=== PATIENT | male | born 2000 | race Caucasian/White ===

== ENCOUNTER 2021-07-12 13:48 | Observation (INO) | payer BC ==
[2021-07-12] MEDS ORDERED: SODIUM CHLORIDE 0.9% 500 ML 500 ML IV STA (14:35)
[2021-07-12 14:54] LABS: ALT 13 U/L (4-49); AST 18 U/L (17-59); African American GFR (CKD) >90 (>60 ml/min/1.73 sqM); Albumin 4.8 g/dL (3.5-5.0); Alkaline Phosphatase 53 U/L (38-126); Anion Gap 10 mmol/L; Blood Urea Nitrogen 11 mg/dL (9-20); Carbon Dioxide 27 mmol/L (22-30); Chloride 103 mmol/L (98-107); Glucose 102 mg/dL (74-99); Non-African American GFR(CKD) >90 (>60 ml/min/1.73 sqM); Potassium 4.3 mmol/L (3.5-5.1); Sodium 140 mmol/L (137-145); Total Bilirubin 0.4 mg/dL (0.2-1.3); Total Protein 7.8 g/dL (6.3-8.2)
--- NOTE | 2021-07-12 14:55 | ED ---
General Adult HPI - General Chief complaint: Neuro Symptoms/Deficit Stated complaint: Headache Time Seen by Provider: 07/12/21 14:05 Source: patient, family, RN notes reviewed, old records reviewed Mode of arrival: ambulatory Limitations: no limitations - History of Present Illness Initial comments: This is a 21-year-old male who presents emergency Department complaining of loss of vision in the lateral aspect of his right eye slurred speech and right arm weakness started at 1245 lasted about a half an hour to 45 minutes and then it subsided. Patient complains of a left frontal headache otherwise he is symptom- free. Patient denies any recent fever chills or cough. Patient denies any trauma. Patient's any chest pain palpitations. Patient denies any difficulty breathing shortest breath per patient denies abdominal pain patient denies nausea vomiting diarrhea. - Related Data Home Medications Medication Instructions Recorded Confirmed No Known Home Medications 07/12/21 07/12/21 Allergies Allergy/AdvReac Type Severity Reaction Status Date / Time No Known Allergies Allergy Verified 07/12/21 16:43 Review of Systems ROS Statement: Those systems with pertinent positive or pertinent negative responses have been documented in the HPI. ROS Other: All systems not noted in ROS Statement are negative. Past Medical History Past Medical History: No Reported History History of Any Multi-Drug Resistant Organisms: None Reported Past Surgical History: No Surgical Hx Reported Past Psychological History: No Psychological Hx Reported Smoking Status: Never smoker Past Alcohol Use History: None Reported Past Drug Use History: None Reported General Exam - General Exam Comments Initial Comments: GENERAL: Patient is well-developed and well-nourished. Patient is nontoxic and well- hydrated and is in no acute distress. ENT: Neck is soft and supple. No significant lymphadenopathy is noted. Oropharynx is clear. Moist mucous membranes. Neck has full range of motion without eliciting any pain. EYES: The sclera were anicteric and conjunctiva were pink and moist. Extraocular movements were intact and pupils were equal round and reactive to light. Eyelids were unremarkable. PULMONARY: Unlabored respirations. Good breath sounds bilaterally. No audible rales rhonchi or wheezing was noted. CARDIOVASCULAR: There is a regular rate and rhythm without any murmurs gallops or rubs. ABDOMEN: Soft and nontender with normal bowel sounds. No palpable organomegaly was noted. There is no palpable pulsatile mass. SKIN: Skin is clear with no lesions or rashes and otherwise unremarkable. NEUROLOGIC: Patient is alert and oriented x3. Cranial nerves II through XII are grossly intact. Motor and sensory are also intact. Normal speech, volume and content. Symmetrical smile. NIH is 0 MUSCULOSKELETAL: Normal extremities with adequate strength and full range of motion. No lower extremity swelling or edema. No calf tenderness. LYMPHATICS: No significant lymphadenopathy is noted PSYCHIATRIC: Normal psychiatric evaluation. Limitations: no limitations Course Vital Signs 07/12/21 07/12/21 07/12/21 14:07 15:15 16:00 Temperature 98.4 F Pulse Rate 110 H 77 78 Respiratory 18 18 18 Rate Blood Pressure 133/78 137/80 133/68 O2 Sat by Pulse 98 99 98 Oximetry Medical Decision Making - Medical Decision Making EKG shows sinus tachycardia at 107 bpm IA interval is 112 QRS is 86 QT interval 322 QTC is 429. Patient's EKG shows no ST segment elevation or depression. CT of the brain shows no acute abnormality. CTA shows no acute abnormality. I spoke with Dr. He Agreed That the Patient Needed to Be Admitted and He Will Be on Consult. I Spoke with Dr. Le She Agreed to Admit the Patient I Admitted the Patient She Wanted Neurologically consult as well as cardiology consult. - Lab Data Result diagrams: 07/12/21 14:40 07/12/21 14:40 Lab Results 07/12/21 07/12/21 07/12/21 Range/Units 14:40 14:40 14:40 WBC 6.1 (4.0-11.0) k/uL RBC 5.01 (4.30-5.90) m/uL Hgb 15.8 (13.0-17.5) gm/dL Hct 44.4 (39.0-53.0) % MCV 88.7 (80.0-100.0) fL MCH 31.5 (25.0-35.0) pg MCHC 35.4 (31.0-37.0) g/dL RDW 13.3 (11.5-15.5) % Plt Count 195 (150-450) k/uL MPV 7.6 Neutrophils % 64 % Lymphocytes % 27 % Monocytes % 6 % Eosinophils % 1 % Basophils % 0 % Neutrophils # 3.9 (1.3-7.7) k/uL Lymphocytes # 1.6 (1.0-4.8) k/uL Monocytes # 0.4 (0-1.0) k/uL Eosinophils # 0.0 (0-0.7) k/uL Basophils # 0.0 (0-0.2) k/uL PT 11.2 (9.0-12.0) sec INR 1.1 (<1.2) APTT 25.3 (22.0-30.0) sec Sodium 140 (137-145) mmol/L Potassium 4.3 (3.5-5.1) mmol/L Chloride 103 (98-107) mmol/L Carbon Dioxide 27 (22-30) mmol/L Anion Gap 10 mmol/L BUN 11 (9-20) mg/dL Creatinine 0.89 (0.66-1.25) mg/dL Est GFR (CKD-EPI)AfAm >90 (>60 ml/min/1.73 sqM) Est GFR (CKD-EPI)NonAf >90 (>60 ml/min/1.73 sqM) Glucose 102 H (74-99) mg/dL Calcium 10.0 (8.4-10.2) mg/dL Total Bilirubin 0.4 (0.2-1.3) mg/dL AST 18 (17-59) U/L ALT 13 (4-49) U/L Alkaline Phosphatase 53 (38-126) U/L Troponin I (0.000-0.034) ng/mL Total Protein 7.8 (6.3-8.2) g/dL Albumin 4.8 (3.5-5.0) g/dL 07/12/21 Range/Units 14:40 WBC (4.0-11.0) k/uL RBC (4.30-5.90) m/uL Hgb (13.0-17.5) gm/dL Hct (39.0-53.0) % MCV (80.0-100.0) fL MCH (25.0-35.0) pg MCHC (31.0-37.0) g/dL RDW (11.5-15.5) % Plt Count (150-450) k/uL MPV Neutrophils % % Lymphocytes % % Monocytes % % Eosinophils % % Basophils % % Neutrophils # (1.3-7.7) k/uL Lymphocytes # (1.0-4.8) k/uL Monocytes # (0-1.0) k/uL Eosinophils # (0-0.7) k/uL Basophils # (0-0.2) k/uL PT (9.0-12.0) sec INR (<1.2) APTT (22.0-30.0) sec Sodium (137-145) mmol/L Potassium (3.5-5.1) mmol/L Chloride (98-107) mmol/L Carbon Dioxide (22-30) mmol/L Anion Gap mmol/L BUN (9-20) mg/dL Creatinine (0.66-1.25) mg/dL Est GFR (CKD-EPI)AfAm (>60 ml/min/1.73 sqM) Est GFR (CKD-EPI)NonAf (>60 ml/min/1.73 sqM) Glucose (74-99) mg/dL Calcium (8.4-10.2) mg/dL Total Bilirubin (0.2-1.3) mg/dL AST (17-59) U/L ALT (4-49) U/L Alkaline Phosphatase (38-126) U/L Troponin I <0.012 (0.000-0.034) ng/mL Total Protein (6.3-8.2) g/dL Albumin (3.5-5.0) g/dL Disposition Clinical Impression: TIA (transient ischemic attack), Complicated migraine Disposition: ADMITTED IP TO THIS HOSP Referrals: Tracy Le MD [Primary Care Provider] - 1-2 days Time of Disposition: 17:01
--- NOTE | 2021-07-12 14:56 | CT ---
EXAMINATION TYPE: CT brain wo con for TPA DATE OF EXAM: 07/12/2021 COMPARISON: None HISTORY: headache CT DLP: [address] of the brain was performed. The ventricles, basal cisterns and sulci overlying the cerebral convexities demonstrate a normal appe arance. There is no evidence for intracranial hemorrhage or sulcal effacement. No mass effects are seen. Osseous calvarium is intact. If symptoms persist consider MRI as clinically warranted. IMPRESSION: 1. No acute intracranial process is seen at this time.
[2021-07-12 14:58] LABS: INR 1.1 (<1.2); Partial Thromboplastin Time 25.3 sec (22.0-30.0); Prothrombin Time 11.2 sec (9.0-12.0)
--- NOTE | 2021-07-12 15:24 | CT ---
EXAMINATION TYPE: CT angio head neck DATE OF EXAM: 07/12/2021 COMPARISON: None HISTORY: headache CT DLP: 444.3 mGycm CONTRAST: Performed with IV Contrast, patient injected with 65 mL of Isovue 370. Combination Contrast CTA cervical carotids and [place] CTA cervical carotids with 3-D recons truction Contrast CTA of the cervical carotids was performed 3-D reconstruction imaging obtained at a separate workstation. Right carotid system: Mild plaque is seen of the right common carotid artery. There is mild plaque a lso noted at the carotid bulb and proximal ICA. No significant diameter reduction. ECA is patent. Right vertebral artery appears unremarkable. Left carotid system: Mild plaque is seen of the left common carotid artery. There is mild plaque als o noted at the carotid bulb and proximal ICA. No significant diameter reduction. ECA is patent. Lef t vertebral artery appears unremarkable. IMPRESSION: 1. No significant diameter reduction to account for the patient's symptoms. CTA [place] with 3-D reconstruction Contrast CTA of the [place] was performed 3-D reconstruction imaging obtained at a separate workstation. Vertebrobasilar system as well as intracranial portions of the internal carotid arteries and their ma carroll tributaries are patent. I do not see evidence for sizable aneurysm or vascular malformation. Pl ease note MRI provides greater sensitivity and specificity. Visualized brain appears grossly unremar kable. IMPRESSION: 1. No significant abnormality. NASCET criteria was used in interpretation of this exam?
[2021-07-12 15:28] LABS: Basophils % (A) 0 %; Eosinophils % (A) 1 %; HCT 44.4 % (39.0-53.0); HGB 15.8 gm/dL (13.0-17.5); Lymphocytes # (A) 1.6 k/uL (1.0-4.8); Lymphocytes % (A) 27 %; MCH 31.5 pg (25.0-35.0); MCHC 35.4 g/dL (31.0-37.0); MCV 88.7 fL (80.0-100.0); Mean Platelet Volume 7.6; Monocytes # (A) 0.4 k/uL (0-1.0); Monocytes % (A) 6 %; Neutrophils # (A) 3.9 k/uL (1.3-7.7); Neutrophils % (A) 64 %; Platelet Count 195 k/uL (150-450); RBC 5.01 m/uL (4.30-5.90); RDW 13.3 % (11.5-15.5); WBC 6.1 k/uL (4.0-11.0)
--- NOTE | 2021-07-12 15:30 | XR ---
EXAMINATION TYPE: XR chest 2V DATE OF EXAM: 07/12/2021 COMPARISON: NONE HISTORY: Chest pain TECHNIQUE: Frontal and lateral views of the chest are obtained. FINDINGS: There is no focal air space opacity. No evidence for pneumothorax. No pleural effusion. The cardiac silhouette size is within normal limits. The osseous structures are grossly intact. IMPRESSION: 1. No acute cardiopulmonary process.
[2021-07-12] MEDS ORDERED: ASPIRIN 325 MG TAB PO STA (17:17)
[2021-07-13 03:49] LABS: Amphetamine Screen,Urine Not Detected (NotDetected); Barbiturate Screen,Urine Not Detected (NotDetected); Benzodiazepines Screen,Urine Not Detected (NotDetected); Cocaine Screen,Urine Not Detected (NotDetected); Methadone Screen, Urine Not Detected (NotDetected); Opiate Screen,Urine Not Detected (NotDetected); Oxycodone Screen, Urine Not Detected (NotDetected); Phencyclidine Screen,Urine Not Detected (NotDetected); Tricyclic Antidepressant,Urine Not Detected (NotDetected); Urn Cannabinoid Scrn Not Detected (NotDetected)
--- NOTE | 2021-07-13 07:52 | MR ---
EXAMINATION TYPE: MR brain wo con DATE OF EXAM: 07/13/2021 7:47 AM COMPARISON: NONE HISTORY: TIA vs complex migraine Multiplanar and multispin-echo imaging of the brain was performed . The ventricles, basal cisterns and sulci overlying the cerebral convexities are within normal limits. There is no evidence for midline shift or mass effect. Acute intracranial hemorrhage or extra-axial collection is not evident. The brain parenchyma reveals no abnormal increased signal. No acute edema is identified. The paranasal sinuses and mastoid air cells are well-aerated. IMPRESSION: Unremarkable MRI of the brain.
[2021-07-13] MEDS ORDERED: ASPIRIN 325 MG TAB PO SCH (09:00)
--- NOTE | 2021-07-13 10:10 | P.CNNES ---
History of Present Illness Consult date: 07/13/21 Requesting physician: Tracy Le Reason for Consult: TIA History of Present Illness: Patient is a 21-year-old male otherwise very healthy, came to the hospital yesterday at 1:48 PM for transient neurological symptoms and headache. Patient states that yesterday at 12:45 PM he noticed that he was having difficulty see ing peripherally on the right side. Shortly after he noticed that he was having trouble with forming sentences and words. He also noticed numbness of the right arm, shoulder and neck with some paresthesias like ants are crawling. He also noticed the tongue was numb. His mother notices that he was talking like "drunk person". Few minutes after onset of these neurological symptoms he developed a throbbing headache involving the left frontal region which he rated 9/10. He denies any nausea vomiting light or noise sensitivity. Denies any problem with balance. The neurological symptoms lasted for about 45 minutes maximum and everything went away. The headache lasted rest of the day and finally went away at 10:30 PM last night after he received some medication. At present he feels perfectly fine. Patient's vitals on arrival blood pressure 133/78, pulse rate 110, temperature 98.4. Blood test shows normal CBC, PT/PTT, CMP. Urine drug screen negative. Computed tomography scan of head showed no acute intracranial process. CTA of head and neck are normal. There is a mild plaque noted at the bilateral carotid bulb and proximal ICA. No significant diameter reduction. Chest x-ray is normal. EKG shows sinus tachycardia. Patient denies any history of migraines, although he gets headaches which sounds like migraines, but mainly occurs when the weather changes from hot to cold, or if the barometric pressure changes and start straining. When the headache occurs, it lasts a whole day. These headaches that occur from 0 times a month to 3 times a week. Patient states his mother suffers from migraines as well as maternal grandmother. He does not drink excessive coffee, does not use tobacco alcohol or drugs. He is planning to start college in winter. Review of Systems Completely unremarkable at this time. All 14 point of review systems reviewed and unremarkable. Past Medical History Past Medical History: No Reported History History of Any Multi-Drug Resistant Organisms: None Reported Past Surgical History: No Surgical Hx Reported Past Anesthesia/Blood Transfusion Reactions: No Reported Reaction Past Psychological History: No Psychological Hx Reported Smoking Status: Never smoker Past Alcohol Use History: None Reported Past Drug Use History: None Reported Medications and Allergies Home Medications Medication Instructions Recorded Confirmed Type Aspirin 325 mg PO DAILY #30 tab 07/13/21 Rx Ibuprofen 600 mg PO Q6H PRN #60 tab 07/13/21 Rx Allergies Allergy/AdvReac Type Severity Reaction Status Date / Time No Known Allergies Allergy Verified 07/12/21 16:43 Physical Examination - Vital Signs Vital Signs: Vital Signs Temp Pulse Pulse Resp BP BP Pulse Ox 07/13/21 07:00 97.7 F 71 15 127/80 100 07/13/21 05:52 98.5 F 75 18 132/71 99 07/13/21 04:17 98.3 F 77 18 127/70 07/13/21 02:30 87 16 07/13/21 02:17 98.5 F 78 18 130/72 98 07/13/21 02:16 97.8 F 87 16 131/75 100 07/13/21 02:00 98.3 F 70 16 122/75 99 07/12/21 23:17 98.4 F 75 18 128/71 98 07/12/21 18:17 98.1 F 83 18 130/76 99 07/12/21 17:17 98.9 F 82 18 128/72 100 07/12/21 16:00 78 18 133/68 98 07/12/21 15:15 77 18 137/80 99 07/12/21 14:07 98.4 F 110 H 18 133/78 98 Intake and Output 07/12/21 07/13/21 07/13/21 22:59 06:59 14:59 Other: # Voids 1 Weight 74.843 kg Patient is a young male, in no acute distress. Patient is alert awake oriented to time place and person. Speech and language functions are normal. Attention, concentration and fund of knowledge is adequate. No aphasia or dysarthria. Patient can name and repeat. On cranial examination, pupils are round and reacting to light, visual robbins are full on confrontation, with no neglect on double simultaneous stimulation. His extraocular muscles are intact with no nystagmus. Face is symmetric, tongue protrudes to the midline. Palatal elevation and sensation normal, hearing and shoulder shrug normal, facial sensation normal. Shoulder shrug normal. On muscle strength testing, there is no pronator drift and the strength is nor mal in arms and legs distally and proximally. Deep tendon reflexes are 1+ to 2+, very symmetric and plantars downgoing. Sensory to touch is equal with no neglect. Cerebellar function showed no ataxia for [id number] testing. No dysdiadochokinesia. Tone and bulk of muscles normal. Gait normal. On general examination, there is no carotid bruit or murmur, S1-S2 audible. Abdomen is soft nontender. Chest is clear. Peripheral pulses are present. No edema. Results - Laboratory Findings CBC and BMP: 07/12/21 14:40 07/12/21 14:40 Abnormal Lab Findings: Abnormal Labs 07/12/21 14:40 Glucose 102 H Assessment and Plan Assessment: * Probable complex migraine. Patient has strong family history of migraines in his mother as well as grandmother. Patient's current neurological examination is normal. MRI of the brain is normal. Plan: * Patient's MRI of the brain is normal. No signs of an acute stroke. * 2-D echo with bubble study to rule out PFO. * If the echo is normal, then patient can be discharged from neurology standpoint. I would suggest trying Excedrin migraine or ibuprofen if he gets a similar migraine in the future. * Lipid panel with cholesterol 99, LDL 46, HDL 34 and triglycerides 93. No indication for statins, as LDL is <70. * Patient was recommended to keep a log of the headaches and if the headaches are frequent, then perhaps follow-up with a neurologist as an outpatient. Addendum: 2-D echo was performed, which revealed normal left ventricular size. Normal EF between 55-60%. Contrast study was performed with 2 IV injection of 8 mL of agitated normal saline at rest and with cough. Patent foramen ovale present with [id number] shunt. Trace MR. Discussed with primary team is Nydia Martin about the results of echo and for recommendation of cardiology consult. They are recommending patient to continue taking aspirin 325 mg daily. Patient will be followed up with Dr. Pettit as outpatient regarding PFO noted. Neurologically clear.
[2021-07-13 10:52] LABS: Chol/HDL Ratio 2.9 Ratio; Triglycerides 93.7 mg/dL (0.00-149.00); VLDL Calculation 18.74 mg/dL (5.00-40.00)
--- NOTE | 2021-07-13 12:38 | ECHOF ---
Referral Reason:TIA MEASUREMENTS -------- HEIGHT: 185.4 cm WEIGHT: 74.8 kg BP: IVSd: 0.6 cm (0.6 - 1.1) LVIDd: 4.4 cm (3.9 - 5.3) LVPWd: 0.9 cm (0.6 - 1.1) EDV(Teich): 86 ml IVSs: 1.1 cm LVIDs: 2.6 cm LVPWs: 1.5 cm %IVS Thck: 65 % ESV(Teich): 24 ml EF(Teich): 72 % %FS: 41 % SV(Teich): 62 ml RVIDd: 2.3 cm (< 3.3) IVC: 16.84 mm LALs A4C: 3.8 cm LAAs A4C: 10.3 cm LAESV A-L A4C: 24 ml LAESV MOD A4C: 20 ml LALs A2C: 4.2 cm LAAs A2C: 12.4 cm LAESV A-L A2C: 31 ml LAESV MOD A2C: 28 ml LAESV(A-L): 28 ml LAESV Index (A-L): 14.26 ml/m Ao Diam: 3.1 cm (2.0 - 3.7) LA Diam: 2.3 cm (2.7 - 3.8) AV Cusp: 1.6 cm (1.5 - 2.6) EPSS: 0.6 cm MV E David: 0.97 m/s MV DecT: 179 ms MV Dec Burke: 5.4 m/s MV A David: 0.46 m/s MV E/A Ratio: 2.12 MV PHT: 52 ms AV Vmax: 1.18 m/s AV maxP.57 mmHg PV Vmax: 0.89 m/s PV maxP.15 mmHg TR Vmax: 1.64 m/s TR maxP.73 mmHg RAP: 5.00 mmHg RVSP: 15.73 mmHg MV EF SLOPE: 129.65 mm/s (70 - 150) MV EXCURSION: 24.60 mm (> 18.000) FINDINGS -------- This was a technically good study. The left ventricular size is normal. Left ventricular wall thickness is normal. Overall left vent ricular systolic function is normal with, an EF between 55 - 60 %. The diastolic filling pattern is normal for the age of the patient 8.39. The right ventricle is normal in size. The left atrial size is normal. Normal LA size by volume 22+/-6 ml/m2. The right atrial size is normal. Contrast study was performed with 2 iv injections of 8 ccs of agitated normal saline, at rest, and wi th cough. Patent foramen ovale present with right to left shunt. The aortic valve is trileaflet and appears structurally normal. The mitral valve is normal. There is trace mitral regurgitation. The tricuspid valve appears structurally normal. Trace tricuspid regurgitation present. Right yue tricular systolic pressure is normal at < 35 mmHg. There is no pulmonic regurgitation present. The aortic root size is normal. Normal inferior vena cava with normal inspiratory collapse consistent with estimated right atrial pre ssure of 5 mmHg. There is a trivial pericardial effusion present. CONCLUSIONS -------- 1. The left ventricular size is normal. 2. Left ventricular wall thickness is normal. 3. Overall left ventricular systolic function is normal with, an EF between 55 - 60 %. 4. The diastolic filling pattern is normal for the age of the patient 8.39 5. Contrast study was performed with 2 iv injections of 8 ccs of agitated normal saline, at rest, and with cough. 6. Patent foramen ovale present with right to left shunt. 7. There is trace mitral regurgitation. 8. Trace tricuspid regurgitation present. 9. There is a trivial pericardial effusion present. [employer]CH[employer]ISE EXECUTION LEADER: Vivian Luna RDCS
--- NOTE | 2021-07-13 12:54 | P.HPIM ---
History of Present Illness H&P Date: 07/13/21 HISTORY AND PHYSICAL AND DISCHARGE SUMMARY: HISTORY OF PRESENT ILLNESS This is a 21-year-old male patient of Dr. Le with past medical history of Patient had sudden onset yesterday of vision change in his right eye and then developed numbness of his hand And tongue was having trouble speaking and family thought he sounded like he was drunk. He also had a bad headache at that time. All his symptoms lasted for about 45 minutes and then resolved. Patient presented to [facility] emergency center for evaluation. Chest x-ray reveals no acute cardio pulmonary process. CAT scan of the brain revealed no acute intracranial process. CT angiogram of the head and neck revealed no significant diameter reduction to account for patient's symptoms. No significant abnormality. MRI of the brain was negative. Triglycerides 93, cholesterol 99, LDL 46, HDL 34. Echocardiogram reveals EF of 55-60%, trace mitral regurgitation, trace tricuspid regurgitation, trivial pericardial effusion. Patient has been seen by Dr. Armijo for probable complex migraine with recommendations for Excedrin Migraine or ibuprofen and follow-up with neurology as an outpatient if headaches persist and her frequent. Patient will be discharged home today in stable condition. REVIEW OF SYSTEMS Constitutional: No fever, no chills, no night sweats. No weight change. No weakness, fatigue or lethargy. No daytime sleepiness. EENT: No headache. No blurred vision or double vision, no loss of vision. No loss of Hearing, no ringing in the ears, no dizziness. No nasal drainage or congestion. No epistaxis. No sore throat. Lungs: No shortness of breath, cough, no sputum production. No wheezing. Cardiovascular: No chest pain, no lower extremity edema. No palpitations. No paroxysmal nocturnal dyspnea. No orthopnea. No lightheadedness or dizziness. No syncopal episodes. Abdominal: No abdominal pain. No nausea, vomiting. No diarrhea. No constipation. No bloody or tarry stools. No loss of appetite. Genitourinary: No dysuria, increased frequency, urgency. No urinary retention. Musculoskeletal: No myalgias. No muscle weakness, no gait dysfunction, no frequent falls. No back pain. No neck pain. Integumentary: No wounds, no lesions. No rash or pruritus. No unusual bruising. No change in hair or nails. Neurologic: No aphasia. No facial droop. No change in mentation. No head injury. No headache. No paralysis. No paresthesia. Psychiatric: No depression. No anxiety. No mood swings. Endocrine: No abnormal blood sugars. No weight change. No excessive sweating or thirst. No cold intolerance. SOCIAL HISTORY Patient is a nonsmoker, no alcohol use, illicit drug use or marijuana use. FAMILY HISTORY Mother is alive with history of migraine headaches. Father is alive with history of hypertension. No family history of strokes/TIAs. PHYSICAL EXAMINATION Gen: This is a 21-year-old male. He is resting in bed appears to be comfortable and in no acute distress. HEENT: Head is atraumatic, normocephalic. Pupils equal, round. Sclerae is anicteric. NECK: Supple. No JVD. No lymphadenopathy. No thyromegaly. LUNGS: Clear to auscultation. No wheezes or rhonchi. No intercostal retractions. HEART: Regular rate and rhythm. No murmur. ABDOMEN: Soft. Bowel sounds are present. No masses. No tenderness. EXTREMITIES: No pedal edema. No calf tenderness. NEUROLOGICAL: Patient is awake, alert and oriented x3. Cranial nerves 2 through 12 are grossly intact. ASSESSMENT AND PLAN 1. Complex migraine. Patient is an observation status. DISCHARGE PLAN Home. Impression and plan of care have been directed as dictated by the signing physician. Nydia Martin nurse practitioner acting as scribe for signing physician. Past Medical History Past Medical History: No Reported History History of Any Multi-Drug Resistant Organisms: None Reported Past Surgical History: No Surgical Hx Reported Past Anesthesia/Blood Transfusion Reactions: No Reported Reaction Past Psychological History: No Psychological Hx Reported Smoking Status: Never smoker Past Alcohol Use History: None Reported Past Drug Use History: None Reported Medications and Allergies Home Medications Medication Instructions Recorded Confirmed Type Ibuprofen 600 mg PO Q6H PRN #60 tab 07/13/21 Rx Allergies Allergy/AdvReac Type Severity Reaction Status Date / Time No Known Allergies Allergy Verified 07/12/21 16:43 Physical Exam Vitals: Vital Signs Temp Pulse Pulse Resp BP BP Pulse Ox 07/13/21 07:00 97.7 F 71 15 127/80 100 07/13/21 05:52 98.5 F 75 18 132/71 99 07/13/21 04:17 98.3 F 77 18 127/70 07/13/21 02:30 87 16 07/13/21 02:17 98.5 F 78 18 130/72 98 07/13/21 02:16 97.8 F 87 16 131/75 100 07/13/21 02:00 98.3 F 70 16 122/75 99 07/12/21 23:17 98.4 F 75 18 128/71 98 07/12/21 18:17 98.1 F 83 18 130/76 99 07/12/21 17:17 98.9 F 82 18 128/72 100 07/12/21 16:00 78 18 133/68 98 07/12/21 15:15 77 18 137/80 99 07/12/21 14:07 98.4 F 110 H 18 133/78 98 Intake and Output 07/12/21 07/13/21 07/13/21 22:59 06:59 14:59 Other: # Voids 1 Weight 74.843 kg Results CBC & Chem 7: 07/12/21 14:40 07/12/21 14:40 Labs: Abnormal Lab Results - Last 24 Hours (Table) 07/12/21 Range/Units 14:40 Glucose 102 H (74-99) mg/dL Thrombosis Risk Factor Assmnt - Choose All That Apply Any of the Below Risk Factors Present?: No Other Risk Factors: No Other congenital or acquired thrombophilia - If yes, enter type in comment: No Thrombosis Risk Factor Assessment Level: Very Low Risk
[2021-07-13 14:37] VITALS: BP 119/61; PULSE 78; RESP 16; TEMP 98.1
== END 2021-07-13 15:43 | disposition home or self-care (01) ==
LOC: EC 13:48 → 6NMEDSUR 17:17
PROVIDERS: ADMIT Family Medicine; ATTEND Family Medicine
DX: G43.109 Migraine with aura, not intractable, without status migrainosus (principal); Q21.1 Atrial septal defect; R20.0 Anesthesia of skin; R20.2 Paresthesia of skin; R00.0 Tachycardia, unspecified; R47.81 Slurred speech; R53.1 Weakness; Z79.82 Long term (current) use of aspirin; Z82.49 Family history of ischemic heart disease and other diseases of the circulatory system; Z82.0 Family history of epilepsy and other diseases of the nervous system
CPT/HCPCS: 96360; 99285; 36415; 93005; 93306; 80061; 80053; 85652; 84484; 85025; 85610; 85730; 86140; 80306; 71046; 70496; 70450; 70498; 70551; G0378 ×2; Q9967

== ENCOUNTER → 2021-07-20 | Day surgery (SDC) | payer BC ==
[2021-07-18 10:26] VITALS: BMI 20.5
[~2021-07-20] MED LIST: MIDAZOLAM 2 MG/2 ML VIAL IV ONE; PROPOFOL 10 MG/ML 20 ML VIAL IV ONE; SODIUM CHLORIDE 0.9% 500 ML 500 ML IV ONE; fentaNYL (PF) 50 MCG/ML 2 ML AMP IV ONE; fentaNYL (PF) 50 MCG/ML 2 ML AMP ONE
[2021-07-20 10:47] VITALS: RESP 16; TEMP 98.4
[2021-07-20] MEDS: BENZOCAINE SPRAY 1 CAN TOPICAL ONE ×2 (12:06→12:13)
[2021-07-20 14:47] VITALS: BP 121/66; PULSE 58
--- NOTE | 2021-07-21 13:22 | ECHOT ---
TRANSESOPHAGEAL ECHOCARDIOGRAM DATE OF SERVICE: 07/20/2021 PERFORMING PHYSICIAN: Jono Pettit M.D. PROCEDURE PERFORMED: Transesophageal echocardiogram. INDICATION: History of TIA in this 21-year-old gentleman who underwent transthoracic echocardiogram that revealed possible patent foramen ovale. COMPLICATIONS: None. LEVEL OF SEDATION: The procedure was performed under general anesthesia because he failed conscious sedation. PROCEDURE DESCRIPTION: After obtaining informed consent, the patient was brought to the transesophageal echocardiogram room. The pulse oximetry and heart rate monitors were attached to the patient. Subsequently the patient was turned into left lateral position. A bite guard was placed after the throat was sprayed using lidocaine. Subsequently, after giving the patient Versed as well as fentanyl on divided doses, the transesophageal echocardiogram probe was advanced through the bite guard to the mid esophagus, but the patient did not tolerate that. At that point we decided to call Anesthesia and do the procedure under general anesthesia. Anesthesia arrived and the patient was given propofol with adequate sedation. Subsequently the transesophageal echocardiogram probe was advanced to the mid esophagus, where 2D echocardiogram images as well as color Doppler images of various cardiac structures were obtained. The procedure was completed without any complication. FINDINGS: The left ventricular dimension and systolic function appeared to be within normal limits. The ejection fraction appeared to be in the range of 50% to 55%. The right ventricle appeared to be of normal size and function. Both atria appeared to be within normal limits for dimension. The interatrial septum appeared to be slightly hyperdynamic with evidence of small patent foramen ovale and [id number] shunt. The aortic valve is a trileaflet valve without stenosis or regurgitation. The mitral valve seems to be normal with mild MR. Normal tricuspid valve and pulmonic valve. CONCLUSION: 1. Small patent foramen ovale with [id number] shunt identified. 2. Normal cardiac chamber sizes. 3. Normal intracardiac valves. 4. Mildly dilated aortic root. 5. No evidence of pericardial effusion. MMODL / IJN: [id number] /
== END ==
LOC: CATHCVL 10:25
PROVIDERS: ATTEND Internal Medicine Interventional Cardiology
DX: Q21.1 Atrial septal defect (principal); Z20.822 Contact with and (suspected) exposure to COVID-19; R93.1 Abnormal findings on diagnostic imaging of heart and coronary circulation; Z79.82 Long term (current) use of aspirin
CPT/HCPCS: 93312; 93320; 93325; 87635; J2250; J3010; J2704

== ENCOUNTER 2022-03-05 01:35 | Emergency (ER) | payer BC ==
[2022-03-05 01:41] VITALS: TEMP 97.6
--- NOTE | 2022-03-05 02:23 | ED ---
Neuro HPI - General Chief Complaint: Neuro Symptoms/Deficit Stated Complaint: Neurologic symptoms Time Seen by Provider: 03/05/22 02:17 Source: patient, RN notes reviewed, old records reviewed Mode of arrival: ambulatory Limitations: no limitations - History of Present Illness Is the patient presenting with stroke symptoms?: No -: hour(s) Initial Comments: This is a 21-year-old male DF for evaluation patient coming to see us today for evaluation possible left-sided arm and leg numbness and tingling as well as vision loss and then headache. Patient states symptoms are resolved currently. He has history of a PFO his history of prior TIA with similar symptoms. Neurology maybe also concern for migraine-type headaches. Patient currently is a symptomatic has no complaints) presenting for evaluation as he was told return to emergency department if any neurological symptoms never occur Location: left arm, left leg History of same: Yes Place: home Severity: mild Quality: weak, numb, tingling Improves With: time Worsens With: none On Anticoagulants: No Context: gradual onset Associated Symptoms: denies other symptoms Treatments Prior to Arrival: none - Related Data Home Medications: Previous Rx's Medication Instructions Recorded Aspirin 325 mg PO DAILY #30 tab 07/13/21 Allergies/Adverse Reactions: Allergies Allergy/AdvReac Type Severity Reaction Status Date / Time No Known Allergies Allergy Verified 03/05/22 01:41 Review of Systems ROS Statement: Those systems with pertinent positive or pertinent negative responses have been documented in the HPI. ROS Other: All systems not noted in ROS Statement are negative. General Exam Limitations: no limitations General appearance: alert, in no apparent distress Head exam: Present: atraumatic, normocephalic, normal inspection Eye exam: Present: normal appearance, PERRL, EOMI. Absent: scleral icterus, conjunctival injection, periorbital swelling ENT exam: Present: normal exam, mucous membranes moist Neck exam: Present: normal inspection. Absent: tenderness, meningismus, lymphadenopathy Respiratory exam: Present: normal lung sounds bilaterally. Absent: respiratory distress, wheezes, rales, rhonchi, stridor Cardiovascular Exam: Present: regular rate, normal rhythm, normal heart sounds. Absent: systolic murmur, diastolic murmur, rubs, gallop, clicks GI/Abdominal exam: Present: soft, normal bowel sounds. Absent: distended, tenderness, guarding, rebound, rigid Extremities exam: Present: normal inspection, full ROM, normal capillary refill. Absent: tenderness, pedal edema, joint swelling, calf tenderness Back exam: Present: normal inspection Neurological exam: Present: alert, oriented X3, CN II-XII intact Psychiatric exam: Present: normal affect, normal mood Skin exam: Present: warm, dry, intact, normal color. Absent: rash Stroke MDM - NIH Stroke Scale 1a. Level of Consciousness: (0) alert 1b. LOC Questions: (0) answers correctly 1c. LOC Commands: (0) performs tasks correctly 2. Best Gaze: (0) normal 3. Visual: (0) no visual loss 4. Facial Palsy: (0) normal symmetrical movement 5a. Motor Arm Left: (0) no drift 5b. Motor Arm Right: (0) no drift 6a. Motor Leg Left: (0) no drift 6b. Motor Leg Right: (0) no drift 7. Limb Ataxia: (0) absent 8. Sensory: (0) normal 9. Best Language: (0) no aphasia 10. Dysarthria: (0) normal 11. Extinction/Inattention: (0) no abnormality - Medical Decision Making 21 male to the emergency department for evaluation of possible TIA type symptoms. Patient has a history of a PFO presents to the emergency department for evaluation. Currently symptoms are resolved patient feels well no headache or anxiety Past Medical History Past Medical History: No Reported History Additional Past Medical History / Comment(s): PATENT FORAMEN OVALE, TIA History of Any Multi-Drug Resistant Organisms: None Reported Past Surgical History: No Surgical Hx Reported Past Anesthesia/Blood Transfusion Reactions: No Reported Reaction Past Psychological History: No Psychological Hx Reported Smoking Status: Never smoker Past Alcohol Use History: None Reported Past Drug Use History: None Reported - Past Family History Mother Family Medical History: No Reported History Course Vital Signs 03/05/22 03/05/22 01:37 03:11 Temperature 97.6 F Pulse Rate 99 72 Respiratory 18 16 Rate Blood Pressure 147/83 131/92 O2 Sat by Pulse 98 100 Oximetry - Reevaluation(s) Reevaluation #1: 03/05/22 02:18 Medical record is reviewed Reevaluation #2: 03/05/22 02:19 Symptoms remain resolved throughout emergency department stay Reevaluation #3: 03/05/22 02:19 Spoke with patient and family at length the feel comfortable with discharge home daily and follow-up with neurology and cardiology regarding this week Disposition Clinical Impression: TIA (transient ischemic attack) Disposition: HOME SELF-CARE Condition: Good Instructions (If sedation given, give patient instructions): Transient Ischemic Attack (ED) Is patient prescribed a controlled substance at d/c from ED?: No Referrals: Tracy Le MD [Primary Care Provider] - 1-2 days Jono Pettit MD [STAFF PHYSICIAN] - 1-2 days Time of Disposition: 03:00
[2022-03-05] MEDS ORDERED: ONDANSETRON 4 MG TAB PO STA (03:03)
[2022-03-05 03:12] VITALS: BP 131/92; PULSE 72; RESP 16
== END 2022-03-05 03:12 | disposition home or self-care (01) ==
LOC: EC 01:35
DX: G45.9 Transient cerebral ischemic attack, unspecified (principal)
CPT/HCPCS: 99284

== ENCOUNTER 2022-03-20 08:38 | Emergency (ER) | payer BC ==
[2022-03-20 08:53] VITALS: BP 121/80
--- NOTE | 2022-03-20 09:02 | ED ---
General Adult HPI - General Chief complaint: Syncope Stated complaint: syncope Time Seen by Provider: 03/20/22 08:43 Source: patient, family, RN/MD, RN notes reviewed, old records reviewed Mode of arrival: wheelchair Limitations: no limitations - History of Present Illness Initial comments: 22-year-old male with a history of TIA and small patent foramen ovale with some right to left shunt also apparently history of complex migraine headaches who was about to get a CAT scan of the abdomen for some intermittent chronic abdominal pain when after the IV was started he started feeling somewhat lightheaded and did pass out for from somewhere about 1-2 minutes. This was in the CAT scan her. A team was called patient was brought to the emergency depar tment. Currently the patient states he feels back to normal he is awake alert has no complaints of any headache pain dizziness nausea vomiting or palpitations loss of function to his upper or lower extremities any denies any abdominal pain at this time. Patient states that this episode was similar to previous ones that he has had. No recent fevers chills or sweats. - Related Data Previous Rx's Medication Instructions Recorded Aspirin 325 mg PO DAILY #30 tab 07/13/21 Allergies Allergy/AdvReac Type Severity Reaction Status Date / Time No Known Allergies Allergy Verified 03/05/22 01:41 Review of Systems ROS Statement: Those systems with pertinent positive or pertinent negative responses have been documented in the HPI. ROS Other: All systems not noted in ROS Statement are negative. Past Medical History Past Medical History: No Reported History Additional Past Medical History / Comment(s): PATENT FORAMEN OVALE, TIA History of Any Multi-Drug Resistant Organisms: None Reported Past Surgical History: No Surgical Hx Reported Past Anesthesia/Blood Transfusion Reactions: No Reported Reaction Past Psychological History: No Psychological Hx Reported Smoking Status: Never smoker Past Alcohol Use History: None Reported Past Drug Use History: None Reported - Past Family History Mother Family Medical History: No Reported History General Exam - General Exam Comments Initial Comments: This is a well-developed well-nourished systolic appearing male who is awake alert oriented 4 Limitations: no limitations General appearance: alert, in no apparent distress Head exam: Present: atraumatic, normocephalic, normal inspection Eye exam: Present: normal appearance, PERRL, EOMI. Absent: scleral icterus, conjunctival injection, periorbital swelling ENT exam: Present: normal exam, mucous membranes moist Neck exam: Present: normal inspection, full ROM, other. Absent: tenderness, meningismus, lymphadenopathy Respiratory exam: Present: normal lung sounds bilaterally. Absent: respiratory distress, wheezes, rales, rhonchi, stridor Cardiovascular Exam: Present: regular rate, normal rhythm, normal heart sounds. Absent: systolic murmur, diastolic murmur, rubs, gallop, clicks GI/Abdominal exam: Present: soft, normal bowel sounds. Absent: distended, tenderness, guarding, rebound, rigid, bruit, pulsatile mass Extremities exam: Present: normal inspection, full ROM, normal capillary refill. Absent: tenderness, pedal edema, joint swelling, calf tenderness Back exam: Present: normal inspection Neurological exam: Present: alert, oriented X3, CN II-XII intact Psychiatric exam: Present: normal affect, normal mood Skin exam: Present: warm, dry, intact, normal color. Absent: rash Course Vital Signs 03/20/22 08:41 Temperature 98.1 F Pulse Rate 86 Respiratory 16 Rate Blood Pressure 121/80 O2 Sat by Pulse 100 Oximetry EKG Findings - EKG Results: EKG: interpreted by ERMD, WNL, sinus rhythm, normal axis, normal QRS, normal ST/T, no acute changes (Normal sinus rhythm rate is 68 [place] interval 142 QRS duration 90 QT since QTC 382/399 st-t wave changes) Medical Decision Making - Medical Decision Making I did discuss the findings with the patient family members present patient is showing better normal the presentation is consistent with a vasovagal episode.. He will follow-up with Dr. Le as previously planned - Lab Data Result diagrams: 03/20/22 08:56 03/20/22 08:56 Lab Results 03/20/22 03/20/22 03/20/22 Range/Units 08:56 08:56 08:56 WBC 3.8 (3.8-10.6) k/uL RBC 5.05 (4.30-5.90) m/uL Hgb 15.5 (13.0-17.5) gm/dL Hct 45.6 (39.0-53.0) % MCV 90.3 (80.0-100.0) fL MCH 30.7 (25.0-35.0) pg MCHC 34.0 (31.0-37.0) g/dL RDW 13.1 (11.5-15.5) % Plt Count 171 (150-450) k/uL MPV 7.6 Neutrophils % 66 % Lymphocytes % 26 % Monocytes % 5 % Eosinophils % 1 % Basophils % 0 % Neutrophils # 2.5 (1.3-7.7) k/uL Lymphocytes # 1.0 (1.0-4.8) k/uL Monocytes # 0.2 (0-1.0) k/uL Eosinophils # 0.0 (0-0.7) k/uL Basophils # 0.0 (0-0.2) k/uL Sodium 139 (137-145) mmol/L Potassium 3.8 (3.5-5.1) mmol/L Chloride 101 (98-107) mmol/L Carbon Dioxide 24 (22-30) mmol/L Anion Gap 14 mmol/L BUN 10 (9-20) mg/dL Creatinine 0.94 (0.66-1.25) mg/dL Est GFR (CKD-EPI)AfAm >90 (>60 ml/min/1.73 sqM) Est GFR (CKD-EPI)NonAf >90 (>60 ml/min/1.73 sqM) Glucose 109 H (74-99) mg/dL Calcium 10.0 (8.4-10.2) mg/dL Magnesium 1.9 (1.6-2.3) mg/dL Total Bilirubin 0.9 (0.2-1.3) mg/dL AST 16 L (17-59) U/L ALT 12 (4-49) U/L Alkaline Phosphatase 58 (38-126) U/L Creatine Kinase 36 L (55-170) U/L Total Protein 7.8 (6.3-8.2) g/dL Albumin 4.9 (3.5-5.0) g/dL Urine Color Yellow Urine Appearance Clear (Clear) Urine pH 6.0 (5.0-8.0) Ur Specific [place] 1.015 (1.001-1.035) Urine Protein Trace H (Negative) Urine Glucose (UA) Negative (Negative) Urine Ketones 1+ H (Negative) Urine Blood Negative (Negative) Urine Nitrite Negative (Negative) Urine Bilirubin Negative (Negative) Urine Urobilinogen <2.0 (<2.0) mg/dL Ur Leukocyte Esterase Negative (Negative) - Radiology Data Radiology results: image reviewed (I did review the CT imaging no definitive pathology seen pending report) Disposition Clinical Impression: Vasovagal syncope Disposition: HOME SELF-CARE Condition: Good Instructions (If sedation given, give patient instructions): Syncope (ED) Is patient prescribed a controlled substance at d/c from ED?: No Referrals: Tracy Le MD [Primary Care Provider] - 1-2 days Decision Date: 03/20/22 Decision Time: 11:13
[2022-03-20 09:26] LABS: Basophils % (A) 0 %; Eosinophils % (A) 1 %; HCT 45.6 % (39.0-53.0); HGB 15.5 gm/dL (13.0-17.5); Lymphocytes % (A) 26 %; MCH 30.7 pg (25.0-35.0); MCV 90.3 fL (80.0-100.0); Mean Platelet Volume 7.6; Monocytes # (A) 0.2 k/uL (0-1.0); Monocytes % (A) 5 %; Neutrophils # (A) 2.5 k/uL (1.3-7.7); Neutrophils % (A) 66 %; Platelet Count 171 k/uL (150-450); RBC 5.05 m/uL (4.30-5.90); RDW 13.1 % (11.5-15.5); WBC 3.8 k/uL (3.8-10.6)
[2022-03-20 09:34] LABS: ALT 12 U/L (4-49); AST 16 U/L (17-59); African American GFR (CKD) >90 (>60 ml/min/1.73 sqM); Albumin 4.9 g/dL (3.5-5.0); Alkaline Phosphatase 58 U/L (38-126); Anion Gap 14 mmol/L; Blood Urea Nitrogen 10 mg/dL (9-20); Carbon Dioxide 24 mmol/L (22-30); Chloride 101 mmol/L (98-107); Creatine Kinase 36 U/L (55-170); Glucose 109 mg/dL (74-99); Magnesium 1.9 mg/dL (1.6-2.3); Non-African American GFR(CKD) >90 (>60 ml/min/1.73 sqM); Potassium 3.8 mmol/L (3.5-5.1); Sodium 139 mmol/L (137-145); Total Bilirubin 0.9 mg/dL (0.2-1.3); Total Protein 7.8 g/dL (6.3-8.2)
[2022-03-20 09:36] LABS: Appearance,Urine Clear (Clear); Bilirubin,Urine Negative (Negative); Blood,Urine Negative (Negative); Color,Urine Yellow; Glucose,Urine (UA) Negative (Negative); Ketones,Urine 1+ (Negative); Leukocyte Esterase,Urine Negative (Negative); Nitrite,Urine Negative (Negative); Protein,Urine Trace (Negative); Specific Gravity,Urine 1.015 (1.001-1.035); Urobilinogen,Urine <2.0 mg/dL (<2.0)
[2022-03-20 11:49] VITALS: PULSE 76; RESP 18; TEMP 98.6
== END 2022-03-20 11:48 | disposition home or self-care (01) ==
LOC: EC 08:38
DX: R55 Syncope and collapse (principal)
CPT/HCPCS: 36415; 80053; 81003; 82550; 83735; 85025; 93005; 99284

== ENCOUNTER → 2022-03-20 | Outpatient (CLI) | payer BC ==
--- NOTE | 2022-03-20 11:49 | CT ---
EXAMINATION TYPE: CT abdomen pelvis w con DATE OF EXAM: 03/20/2022 COMPARISON: None available HISTORY: Right lower quadrant abdominal swelling, CT DLP: 653.8 mGycm Automated exposure control for dose reduction was used. TECHNIQUE: Helical acquisition of images was performed from the lung bases through the pelvis. CONTRAST: Performed with Oral Contrast and with IV Contrast, patient injected with 100 mL of Isovue 300. FINDINGS: LUNG BASES: No significant abnormality is appreciated. LIVER/GB: No significant abnormality is appreciated. PANCREAS: No significant abnormality is seen. SPLEEN: No significant abnormality is seen. ADRENALS: No significant abnormality is seen. KIDNEYS: No significant abnormality is seen. FREE AIR: No free air is visualized. RETROPERITONEAL ADENOPATHY: None visualized REPRODUCTIVE ORGANS: No significant abnormality is seen URINARY BLADDER: No significant abnormality is seen. PELVIC ADENOPATHY: None visualized. OSSEOUS STRUCTURES: No aggressive bone lesion. BOWEL: Suboptimal assessment of the small and large bowel due to paucity of intra-abdominal fat. No evidence of bowel obstruction. Fecal loading of the sigmoid colon. Mild wall thickening of segments o f the colon, nonspecific. Chronic colitis cannot be excluded. Recommend clinical correlation and furt her workup. Normal appendix. OTHER: Unremarkable abdominal aorta. No sizable ascites. IMPRESSION: No definite suspicious lesion seen in the abdomen or the pelvis. Nonspecific mild wall thickening of segments of the colon which could be related to chronic colitis. Recommend clinical correlation and f urther workup if needed.
== END | disposition home or self-care (01) ==
LOC: RADCTMAIN 07:07
PROVIDERS: ATTEND Family Medicine
DX: K63.89 Other specified diseases of intestine (principal)
CPT/HCPCS: 74177; Q9967 ×2

== ENCOUNTER → 2022-10-11 | Outpatient (CLI) | payer BC ==
[2022-10-11 15:19] LABS: HCT 47.8 % (39.6-50.0); HGB 15.7 g/dL (13.0-17.0); MCH 29.7 pg (27.0-32.0); MCHC 32.8 g/dL (32.0-37.0); MCV 90.5 fL (80.0-97.0); Mean Platelet Volume 10.9 fL (9.5-12.2); NRBC Per 100 WBC 0 /100 WBCS (0.0-0.0); Platelet Count 184 X 10*3/uL (140-440); RBC 5.28 X 10*6/uL (4.40-5.60); WBC 4.62 X 10*3/uL (4.50-10.00)
[2022-10-11 16:41] LABS: ALT 14 U/L (10-49); AST 14 U/L (14-35); African American GFR (CKD) 128.6 (60.0-200.0); Albumin 5.2 g/dL (3.8-4.9); Albumin/Globulin Ratio 1.97 (1.60-3.17); Alkaline Phosphatase 60 U/L (41-126); BUN/Creat Ratio 9.35 Ratio (12.00-20.00); Blood Urea Nitrogen 9.1 mg/dL (9.0-27.0); C Reactive Protein <0.30 mg/dL (0.00-0.80); Calcium 10.6 mg/dL (8.7-10.3); Carbon Dioxide 27.5 mmol/L (20.0-27.5); Chloride 103 mmol/L (96-109); Chol/HDL Ratio 2.22 Ratio; Globulin 2.7 g/dL (1.6-3.3); Glucose 98 mg/dL (70-110); LDL Cholesterol,Calculated 56.2 mg/dL (0.0-131.0); Lipase 24 U/L (14-60); Potassium 4.7 mmol/L (3.5-5.5); Sodium 140 mmol/L (135-145); Total Protein 7.9 g/dL (6.2-8.2)
[2022-10-11 16:42] LABS: Erythrocyte Sedimentation Rate 2 mm/Hr (0-15)
[2022-10-12 02:52] LABS: Gliadin AB IgA, Deaminated NEGATIVE (NEGATIVE); Gliadin AB IgA, Unit <0.2 U/mL; Gliadin AB IgG, Deaminated NEGATIVE (NEGATIVE); Gliadin AB IgG, Unit <0.4 U/mL
== END | disposition home or self-care (01) ==
LOC: LABWHC1 09:45
PROVIDERS: ATTEND Family Medicine
DX: Z13.220 Encounter for screening for lipoid disorders (principal); Z13.228 Encounter for screening for other metabolic disorders; I73.00 Raynaud's syndrome without gangrene; R11.0 Nausea
CPT/HCPCS: 36415; 80053; 80061; 83516; 83690; 84443; 85027; 85652; 86140